=== PATIENT | female | born 1970 | race Caucasian/White ===

== ENCOUNTER 2023-06-19 08:17 | Day surgery (SDC) | payer BC, OTHER ==
[2023-06-15 12:57] VITALS: BMI 32.7
[2023-06-19 11:14] VITALS: RESP 18; TEMP 98
[2023-06-19 11:43] VITALS: BP 110/74; PULSE 86
== END 2023-06-19 11:40 | disposition home or self-care (01) ==
LOC: FASU-ENDO 08:17
PROVIDERS: ATTEND Internal Medicine Gastroenterology
PROC: 0DBH8ZX Excision of Cecum, Via Natural or Artificial Opening Endoscopic, Diagnostic (ICD-10-PCS; 2023-06-19)
PROC: 0D5H8ZZ Destruction of Cecum, Via Natural or Artificial Opening Endoscopic (ICD-10-PCS; principal; 2023-06-19 10:38)
DX: Z12.11 Encounter for screening for malignant neoplasm of colon (principal); D12.0 Benign neoplasm of cecum; K55.20 Angiodysplasia of colon without hemorrhage
CPT/HCPCS: 81025; 88305-TC